=== PATIENT | female | born 1955 | race Hispanic/Latino ===

== ENCOUNTER 2023-09-22 09:50 | Emergency (ER) | payer MEDICARE ==
[~2023-09-22] VITALS: Ht 152.4 cm; Wt 52.2 kg
[2023-09-22] MEDS: KETOROLAC 15MG/ML VIAL (15MG/ML) IM ONE (10:30)
[2023-09-22] MEDS ORDERED: IBUP-2070 PO (10:35)
[2023-09-22] MEDS: HYDROCODONE/ACETAMINOPHEN 5/325 MG TAB PO ONE (11:30)
[2023-09-22] MEDS: ONDANSETRON 4MG TABLET PO ONE (11:30)
[2023-09-22] MEDS: CLONIDINE HCL 0.1 MG TABLET PO ONE (13:02)
[2023-09-22] MEDS ORDERED: LISI10TA24 PO (13:41)
[2023-09-22 13:45] LABS: HEMATOCRIT 28.8 % (36-48); MEAN CORPUSCULAR HEMOGLOBIN 30.3 pg (27.0-33.0); MEAN CORPUSCULAR HGB CONC 34.7 g/dL (32.0-36.0); MEAN CORPUSCULAR VOLUME 87.3 fL (79-99); RED BLOOD CELL COUNT(AUTO) 3.3 MIL/uL (4.00-5.50); RED CELL DISTRIBUTION WIDTH 12.8 % (11.0-15.5); WHITE BLOOD COUNT (AUTO) 6.3 K/uL (4.8-10.8)
[2023-09-22 13:51] LABS: CREATININE 1.1 mg/dL (0.5-1.0); POTASSIUM 4.2 mmol/L (3.5-5.1)
[2023-09-22 13:56] LABS: ALBUMIN 3.1 g/dL (3.5-5.0); BILIRUBIN,TOTAL 0.3 mg/dL (0.2-1.0); TOTAL PROTEIN, SERUM 6.7 g/dL (6.0-8.3)
[2023-09-22] MEDS ORDERED: LISI5TAB21 PO (14:09)
[2023-09-22 14:13] VITALS: BP 128/67; PULSE 69; RESP 16; O2SAT 99
== END 2023-09-22 14:55 | disposition home or self-care (01) ==
LOC: EDH 09:50
DX: M54.31 Sciatica, right side (principal); M54.50 Low back pain, unspecified; E11.65 Type 2 diabetes mellitus with hyperglycemia; I10 Essential (primary) hypertension; E78.00 Pure hypercholesterolemia, unspecified; Z79.899 Other long term (current) drug therapy; Z88.5 Allergy status to narcotic agent; Z90.49 Acquired absence of other specified parts of digestive tract
CPT/HCPCS: 99285; 72131; 80053; 85027; 82948; 36415; 96372; 93005; Q0162; J1885